=== PATIENT | female | born 1935 | race Caucasian/White ===

== ENCOUNTER 2018-05-28 00:45 | Emergency (ER) | payer MEDICARE, BC ==
[~2018-05-28] VITALS: Ht 167.6 cm; Wt 106.0 kg
[2018-05-28] MEDS ORDERED: IPRATRPIUM/ALBUTEROL 0.5/2.5MG 3 ML NEBU. ONE (01:10)
[2018-05-28] MEDS: IPRATRPIUM/ALBUTEROL 0.5/2.5MG 3 ML NEBU. NEB ONE (01:13)
[2018-05-28] MEDS: HYDROcodone/APAP 5/325MG 1 TAB TABLET PO ONE (01:35)
[2018-05-28 01:50] VITALS: BP 184/111
--- NOTE | 2018-05-28 03:32 | ED.ADGEN ---
Past History Past Medical History: CAD, Hypertension Past Surgical History: Knee Replacement, Other Adult General Chief Complaint Chief Complaint , Cough HPI HPI Patient is a 82-year-old female presents with nasal congestion, persistent rhinorrhea with postnasal drip and cough. Patient also reports chest wall pain from repeated coughing and difficulty sleeping. Cough. No fever chills, nausea vomiting or sweats. No other acute symptoms or complaints. Patient's blood pressure noted to be elevated. Patient states she has not taken her blood pressure medication. Feeling unwell past day.[] Review of Systems Review of Systems Constitutional: Denies fever or chi All other systems were reviewed and found to be within normal limits, except as documented in this note. Current Medications Current Medications Current Medications Medications (Trade) Dose Ordered Sig/Jose A Start Time Stop Time Status Last Admin Dose Admin Acetaminophen/ Hydrocodone Bitart (Lortab 5/325) 1 tab 1X ONCE 05/28/18 02:00 05/28/18 02:00 DC 05/28/18 01:35 1 TAB Albuterol/ Ipratropium (Duoneb) 3 ml STK-MED ONCE 05/28/18 01:10 05/28/18 01:12 DC Allergies Allergies Allergies Coded Allergies Type Severity Reaction Last Updated Verified codeine Allergy Severe GI UPSET 05/28/18 Yes ibuprofen Allergy Severe 05/28/18 Yes Physical Exam Physical Exam Constitutional: Well developed, well nourished, no acute distress, non-toxic appearance. [] HENT: Normocephalic, atraumatic, bilateral external ears normal, oropharynx moist, no oral exudates, nose rhinorrhea, nasal congestion[] Eyes: PERRLA, EOMI, conjunctiva normal, no discharge. [] Neck: Normal range of motion, no tenderness, supple, no stridor. [] Cardiovascular:Heart rate regular rhythm, no murmur [] Lungs & Thorax: Bilateral breath sounds clear to auscultation [] edema. [] Neurologic: Alert and oriented X 3, normal motor function, normal sensory function, no focal deficits noted. [] Psychologic: Affect normal, judgement normal, mood normal. [] Current Patient Data Vital Signs Vital Signs Date Time Temp Pulse Resp B/P (MAP) Pulse Ox O2 Delivery O2 Flow Rate FiO2 05/28/18 01:50 100 16 184/111 (135) 97 Room Air 05/28/18 00:54 98.8 EKG EKG [] Radiology/Procedures Radiology/Procedures [Chest x-ray: No obvious pulmonary infiltrate on preliminary ED review] Course & Med Decision Making Course & Med Decision Making Pertinent Labs and Imaging studies reviewed. (See chart for details) [Patient given a breathing treatment and hydrocodone with improved cough chest wall discomfort. Patient no respiratory distress. Recommend supportive care with PCP follow-up.] Final Impression Final Impression [#1 upper respiratory tract infection] Edward Disclaimer Dragon Disclaimer This electronic medical record was generated, in whole or in part, using a voice recognition dictation system. JEFF MORALES DO May 28, 2018 03:32
--- NOTE | 2018-05-28 04:27 | RAD ---
EXAM: CHEST 1 VIEW History: Chest pain COMPARISON: None available. TECHNIQUE: Single portable radiograph of the chest FINDINGS: The cardiac silhouette is unremarkable. The lungs are clear bilaterally. The costophrenic sulci are clear and well demarcated. IMPRESSION: No radiographic evidence of an acute cardiopulmonary process. Electronically signed by: Froylan Richards MD (05/28/2018 4:23 AM) [id number]
== END 2018-05-28 01:51 | disposition home or self-care (01) ==
LOC: ER 00:45
DX: J06.9 Acute upper respiratory infection, unspecified (principal); I10 Essential (primary) hypertension; I25.10 Atherosclerotic heart disease of native coronary artery without angina pectoris; Z88.5 Allergy status to narcotic agent; Z88.6 Allergy status to analgesic agent
CPT/HCPCS: 71045; 94640; 99283; J7620

== ENCOUNTER 2021-07-16 09:39 | Emergency (ER) | payer MEDICARE, BC ==
[~2021-07-16] VITALS: Ht 167.6 cm; Wt 98.0 kg
[2021-07-16 09:39] VITALS: BP 184/111
--- NOTE | 2021-07-16 09:54 | PHYS DOC ---
Past History Past Medical History: A-Fib, CAD, Hypertension Past Surgical History: Knee Replacement, Other Adult General Chief Complaint Chief Complaint: URINARY FREQUENCY HPI HPI Patient is a 85-year-old female presenting for urinary symptoms. Onset was in the middle of the night, states she woke up with dysuria and increased urinary frequency. She has history of urinary tract infections in the past and reports this feels like prior episodes. She has no flank pain, no fever. She is otherwise been at baseline health with no changes in overall health or daily medications. She denies any vaginal discharge or other concerning findings Review of Systems Review of Systems Fourteen body systems of review of systems have been reviewed. See HPI for pertinent positives and negative responses, other lewis all other systems are negative, non-pertinent or non-contributory Allergies Allergies Allergies Coded Allergies Type Severity Reaction Last Updated Verified codeine Allergy Severe GI UPSET 05/28/18 Yes ibuprofen Allergy Severe 05/28/18 Yes Physical Exam Physical Exam Constitutional: Well developed, well nourished, no acute distress, non-toxic appearance. HENT: Normocephalic, atraumatic, bilateral external ears normal, oropharynx moist, no oral exudates, nose normal. Eyes: PERRLA, EOMI, conjunctiva normal, no discharge. Neck: Normal range of motion, no tenderness, supple, no stridor. Cardiovascular: Heart rate regular, sinus rhythm, no murmurs rubs or gallops Lungs & Thorax: Bilateral breath sounds clear to auscultation Abdomen: Bowel sounds normal, soft, suprapubic tenderness with palpation without guarding or rebound, no masses, no pulsatile masses. Nonsurgical abdomen, no peritoneal signs Skin: Warm, dry, no erythema, no rash. Back: No tenderness, no CVA tenderness. Extremities: No tenderness, no cyanosis, no clubbing, ROM intact, no edema. Neurologic: Alert and oriented X 3, grossly normal motor & sensory function, no focal deficits noted. Psychologic: Affect normal, judgement normal, mood normal. Current Patient Data Vital Signs Vital Signs Date Time Temp Pulse Resp B/P (MAP) Pulse Ox O2 Delivery O2 Flow Rate FiO2 07/16/21 09:39 98.4 77 184/111 (135) 98 07/16/21 09:39 18 Room Air Vital Signs Date Time Temp Pulse Resp B/P (MAP) Pulse Ox O2 Delivery O2 Flow Rate FiO2 07/16/21 09:39 98.4 77 18 98 Room Air 07/16/21 09:39 184/111 (135) Lab Results Laboratory Tests Test 07/16/21 09:51 Urine Collection Type Unknown Urine Color Yellow Urine Clarity Turbid Urine pH 5.5 Urine Specific Martha >=1.030 Urine Protein 100 mg/dl Urine Glucose (UA) Neg mg/dL Urine Ketones (Stick) Trace mg/dL Urine Blood Large Urine Nitrite Neg Urine Bilirubin Small Urine Urobilinogen Dipstick 1.0 mg/dL Urine Leukocyte Esterase Mod Urine RBC >40 /HPF Urine WBC Tntc /HPF Urine Squamous Epithelial Cells Few /LPF Urine Bacteria 0 /HPF EKG EKG [] Radiology/Procedures Radiology/Procedures [] Heart Score C/O Chest Pain: No Risk Factors: Risk Factors: DM, Current or recent (<one month) smoker, HTN, HLP, family history of CAD, obesity. Risk Scores: Risk Factors: DM, Current or recent (<one month) smoker, HTN, HLP, family history of CAD, obesity. Course & Med Decision Making Course & Med Decision Making ABCs unremarkable HPI physical exam and comprehensive ER work-up nonconcerning for any emergent or surgical issues Patient's urinalysis concerning for UTI, states it feels like prior episodes. She is taking cefdinir in the past and tolerated this well, joint decision to start this and treat as complicated UTI First dose administered in ER with subsequent prescription written. Patient has good access to outpatient follow-up. Strict return precautions discussed and understood prior to departure Dragon Disclaimer Dragon Disclaimer This electronic medical record was generated, in whole or in part, using a voice recognition dictation system. Departure Departure: Impression: Primary Impression: Urinary tract infection Disposition: HOME / SELF CARE / HOMELESS Condition: STABLE Referrals: KARLEE SWANSON MD (PCP) Patient Instructions: Urinary Tract Infection Additional Instructions: You were seen for a urinary tract infection. Please continue to take the antibiotics as prescribed. You should return to the ED if you develop worsening pain, fever, flank pain, or any other new or concerning symptoms. Follow up with primary care for further management if ongoing symptoms. Scripts Cefdinir (CEFDINIR) 300 Mg Capsule 1 CAP PO BID for uti, #20 CAP Prov: ELVIS LALA DO 07/16/21 ELVIS LALA DO Jul 16, 2021 09:54
[2021-07-16 10:47] LABS: BILIRUBIN,URINE SMALL (NEG); CLARITY,URINE TURBID; COLOR,URINE YELLOW; GLUCOSE,URINE NEG (NEG)
[2021-07-16 10:48] LABS: BACTERIA,URINE 0 /HPF (0-FEW); NITRITE,URINE NEG (NEG); RBC,URINE >40 /HPF (0-2); SQUAMOUS EPITHELIAL CELL,UR FEW /LPF; WBC,URINE TNTC /HPF (0-4)
[2021-07-16] MEDS ORDERED: CEFDINIR 300 MG CAPSULE PO SCH (11:00)
[2021-07-16] MEDS ORDERED: CEFD300C PO (11:00)
[2021-07-16] MEDS ORDERED: CEFDINIR 300 MG CAPSULE PO ONE (11:07)
== END 2021-07-16 11:10 | disposition home or self-care (01) ==
LOC: ER 09:39
DX: N39.0 Urinary tract infection, site not specified (principal); I48.91 Unspecified atrial fibrillation; I25.10 Atherosclerotic heart disease of native coronary artery without angina pectoris; I10 Essential (primary) hypertension; Z87.440 Personal history of urinary (tract) infections; Z88.5 Allergy status to narcotic agent; Z88.6 Allergy status to analgesic agent
CPT/HCPCS: 81001; 87086; 99283